=== PATIENT | female | born 1985 | race Caucasian/White ===

== ENCOUNTER 2018-01-15 09:35 | Inpatient (IN) ==
[2018-01-15] MEDS ORDERED: Sod Chloride 0.9% Inj 1,000 ML IV.CONT PRN (10:35)
[2018-01-15] MEDS ORDERED: fentaNYL Citrate Inj 100 MCG/2 ML Ampul IV.PUSH PRN ×2 (10:35)
[2018-01-15] MEDS ORDERED: Oxytocin 30 Units/500ml Premix 30 UNITS/500 ML BAG IV.SIG ONE (10:35)
[2018-01-15] MEDS ORDERED: Naloxone Inj 0.4 MG/ML Vial IV.PUSH PRN ×2 (10:35→15:42)
[2018-01-15] MEDS ORDERED: Sodium Chlor 0.9% Inj 500 ML IV.SIG PRN (10:35)
[2018-01-15] MEDS ORDERED: Oxytocin 30 Units/500ml Premix 30 UNITS/500 ML BAG IV.SIG PRN (10:40)
--- NOTE | 2018-01-15 10:43 | ED ---
History of Present Illness Service: BRENDA Primary Care Physician: No Primary Care Physician Chief Complaint: "My water broke" History of Present Illness: Ms. Alicea is a 32yo at 37/1 who presented to the ED because she had a gush of fluid at 8:24 this am. She is not feeling any contractions, has not had any vaginal bleeding. movement has been good. She denies any issues during . She is GBS (-). Weeks Gestation:: 37 Para: 1 : 2 - Inpatient Certification I certify that the inpatient services were ordered in accordance with Medicare regulations governing the order. This includes certification that hospital inpatient services are reasonable and necessary and in the case of services not specified as inpatient-only under 42 CFR 419.22(n), that they are appropriately provided as inpatient services in accordance to with the 2-midnight benchmark under 43 CFR 412.3(e) PMFSH - Medical / Surgical Hx Neg / Unobtainable Medical Problems Denied: Yes Surgical History: No Previous Surgery - Tobacco History Tobacco Use In Past 30 Days: No - Alcohol History How Often Do You Have a Drink Containing Alcohol: Never (Not during ) - Substance Use History Substance History: No History of Abuse - Travel History Recent Travel in the [place] Within the Last 8 Weeks: No Recent Travel Out of the Country Within the Last 8 Weeks: No Medications and Allergies Allergies Allergy/AdvReac Type Severity Reaction Status Date / Time No Known Allergies Allergy Uncoded 09/12/12 17:17 Active Medications: Active Medications Lactated Ringer's (Lr 1000 Ml Inj) 1,000 mls @ 125 mls/hr IV.CONT .Q8H ANTOINETTE Sodium Chloride (Ns Flush) 2 ml IV.FLUSH PRN PRN PRN Reason: FLUSH AFTER USING IV ACCESS Sodium Chloride (Ns Flush) 2 ml IV.FLUSH BID ANTOINETTE Exam Vital signs: Vital Signs 01/15/18 09:57 01/15/18 10:05 01/15/18 10:10 Temperature 99.3 F Pulse Rate 94 H 107 H 91 H Respiratory Rate 18 Blood Pressure 133/93 H 142/98 H 133/84 Intake & Output 01/14/18 01/15/18 01/15/18 18:59 06:59 18:59 Weight 85 kg - Constitutional no acute distress - Routine Respiratory Exam Present: CTA bilaterally. Absent: accessory muscle use, wheezes, crackles - Routine Cardiovascular Exam Present: RRR, S1, S2 - Routine Abdominal Exam Present: normoactive bowel sounds Comments: Gravid - Routine Exam Comments: Cervical exam by Dr. Bhatia: Dilation 2 Effacement 30 Station -3 - Routine Extremities Exam Present: pulses intact. Absent: edema, calf tenderness - Additional findings Additional findings: FHT: Baseline 140 Reactive Moderate variability No decelerations Results - Labs CBC & Chem 7: 01/15/18 09:45 01/15/18 09:45 Assessment and Plan - Plan 32 yo at 37/0 with SROM -Admit to labor and delivery with expectant management - Attending Attestation The exam, history, and the medical decision-making described in the above note were completed with the assistance of the resident physician. I reviewed and agree with the findings presented. I attest that I had a [id number] encounter with the patient on the same day, and personally performed and documented my assessment and findings in the medical record. Discharge Plan - Physicians Team Primary Care Provider: Primary Care Sonal Carlin Attending Provider: Matt Bhatia
[2018-01-15] MEDS ORDERED: Citric Acid/Sodium Citrate Liq 30 ML UDC PO SCH (10:45)
--- NOTE | 2018-01-15 10:49 | P.HPOB ---
Chief Complaint: "My water broke" History of Present Illness: Ms. lAicea is a 32yo at 37/1 who presented to the ED because she had a gush of fluid at 8:24 this am. She is not feeling any contractions, has not had any vaginal bleeding. movement has been good. She denies any issues during . She is GBS (-). Weeks Gestation:: 37 Para: 1 : 2 - Inpatient Certification I certify that the inpatient services were ordered in accordance with Medicare regulations governing the order. This includes certification that hospital inpatient services are reasonable and necessary and in the case of services not specified as inpatient-only under 42 CFR 419.22(n), that they are appropriately provided as inpatient services in accordance to with the 2-midnight benchmark under 43 CFR 412.3(e) PMFSH - Medical / Surgical Hx Neg / Unobtainable Medical Problems Denied: Yes Surgical History: No Previous Surgery - Tobacco History Tobacco Use In Past 30 Days: No - Alcohol History How Often Do You Have a Drink Containing Alcohol: Never (Not during ) - Substance Use History Substance History: No History of Abuse - Travel History Recent Travel in the [place] Within the Last 8 Weeks: No Recent Travel Out of the Country Within the Last 8 Weeks: No Medications and Allergies Active Medications: Active Medications Lactated Ringer's (Lr 1000 Ml Inj) 1,000 mls @ 125 mls/hr IV.CONT .Q8H ANTOINETTE Sodium Chloride (Ns Flush) 2 ml IV.FLUSH PRN PRN PRN Reason: FLUSH AFTER USING IV ACCESS Sodium Chloride (Ns Flush) 2 ml IV.FLUSH BID ANTOINETTE Allergies Allergy/AdvReac Type Severity Reaction Status Date / Time No Known Allergies Allergy Uncoded 09/12/12 17:17 Exam Vital signs: Vital Signs 01/15/18 09:57 01/15/18 10:05 01/15/18 10:10 Temperature 99.3 F Pulse Rate 94 H 107 H 91 H Respiratory Rate 18 Blood Pressure 133/93 H 142/98 H 133/84 Intake & Output 01/14/18 01/15/18 01/15/18 18:59 06:59 18:59 Weight 85 kg - Constitutional no acute distress - Routine Respiratory Exam Present: CTA bilaterally. Absent: accessory muscle use, wheezes, crackles - Routine Cardiovascular Exam Present: RRR, S1, S2 - Routine Abdominal Exam Present: normoactive bowel sounds Comments: Gravid - Routine Exam Comments: Cervical exam by Dr. Bhatia: Dilation 2 Effacement 30 Station -3 - Routine Extremities Exam Present: pulses intact. Absent: edema, calf tenderness - Additional findings Additional findings: FHT: Baseline 140 Reactive Moderate variability No decelerations Assessment and Plan - Plan 32 yo at 37/0 with SROM -Admit to labor and delivery with expectant management -Start pitocin 06/28/29 -CBC, CMP, U/A -BP slightly elevated on admission (142/98)- continue to monitor -Continuous monitoring -NPO diet DW Dr Bhatia and SDW Dr Song Attestation Attestation: Pt seen and examined by me.
[2018-01-15 10:58] LABS: Baso % (Auto) 0.6 % (0.0-2.0); Eos # (Auto) 0.1 th/mm3 (0.0-0.4); Eos % (Auto) 1.9 % (0.0-4.0); Hematocrit 38.1 % (35.0-46.0); Hemoglobin 12.8 gm/dL (11.6-15.3); Lymph # (Auto) 2.1 th/mm3 (1.0-4.8); Lymph % (Auto) 33.4 % (9.0-44.0); Mean Corpuscular HGB Conc 33.5 % (32.0-36.0); Mean Corpuscular Hemoglobin 31.3 pg (27.0-34.0); Mean Corpuscular Volume 93.6 fL (80.0-100.0); Mean Platelet Volume 9.4 fL (7.0-11.0); Mono # (Auto) 0.4 th/mm3 (0.0-0.9); Mono % (Auto) 6.6 % (0.0-8.0); Neut # (Auto) 3.6 th/mm3 (1.8-7.7); Neut % (Auto) 57.5 % (16.0-70.0); Platelet Count 284 th/mm3 (150-450); Red Blood Count 4.07 mil/mm3 (4.00-5.30); Red Cell Distribution Width 13.5 % (11.6-17.2); White Blood Count 6.2 th/mm3 (4.0-11.0)
[2018-01-15 11:04] LABS: Amphetamine Urine With Conf Neg (Neg); Benzodiazepine Urine With Conf Neg (Neg)
[2018-01-15 11:15] LABS: Alanine Aminotransferase 26 U/L (10-53); Albumin 2.7 g/dL (3.4-5.0); Anion Gap 8 meq/L (5-15); Aspartate Aminotransferase 26 U/L (15-37); Blood Urea Nitrogen 11 mg/dL (7-18); Calcium 8.1 mg/dL (8.5-10.1); Carbon Dioxide 19.9 meq/L (21.0-32.0); Chloride 113 meq/L (98-107); Glomerular Filtration Rate Greater Than 89 mL/min (>89); Glucose,Random 73 mg/dL (74-106); Potassium 3.9 meq/L (3.5-5.1); Sodium 141 meq/L (136-145)
[2018-01-15 11:17] LABS: Alkaline Phosphatase 188 U/L (45-117); Total Protein 6.8 g/dL (6.4-8.2)
[2018-01-15] MEDS ORDERED: Bisacodyl 10 MG Supp RECTAL PRN (15:42)
[2018-01-15] MEDS ORDERED: Benzocaine 20% Top Spray 60 ML Can TOPICAL PRN (15:42)
[2018-01-15] MEDS ORDERED: Witch Hazel 50%/Glyderin 12.5% 40 Pad Jar RECTAL PRN (15:42)
[2018-01-15] MEDS ORDERED: Oxytocin 30 Units/500ml Premix 30 UNITS/500 ML BAG IV.CONT SCH (15:45)
[2018-01-15] MEDS ORDERED: Measles/Mumps/Rubella Vaccine Inj 0.5 ML Vial SQ ONE (16:00)
[2018-01-15] MEDS ORDERED: Diphtheria/Tetanus/Pertussis Vaccine Inj 0.5 ML Syringe IM ONE (16:00)
--- NOTE | 2018-01-15 17:26 | P.OBDELI ---
Weeks Gestation: 37 Patient Started Active Labor: Yes Active Labor Start Date: 01/15/18 Active Labor Start Time: 07:00 Medical Induction of Labor: No Artificial Rupture of Membrane: Yes Artificial ROM Date: 01/15/18 Anesthesia: None Episiotomy: none Vaginal Delivery: Normal Presentation: Occiput anterior Nuchal Cord: None Delayed Cord Clamping (45 sec): Yes Placenta: Spontaneous delivery, Intact, 3 vessel cord Laceration: None Estimated blood loss (mL): 150 : Male
[2018-01-15] MEDS: Senna/Docusate Sodium 8.6/50 MG Tablet PO SCH (19:59)
[2018-01-15] MEDS: Ibuprofen 400 MG Tablet PO PRN (19:59)
[2018-01-15] MEDS: Acetaminophen 325 MG Tablet PO PRN (19:59)
[2018-01-15] MEDS ORDERED: Zolpidem Tartrate 5 MG Tablet PO PRN (21:00)
[2018-01-16] MEDS: Ibuprofen 400 MG Tablet PO PRN ×2 (04:48→19:11)
[2018-01-16] MEDS: Acetaminophen 325 MG Tablet PO PRN (04:48)
--- NOTE | 2018-01-16 07:17 | P.PNOB ---
Subjective Interval history: Patient is a 32-year-old delivered at 37 weeks and 0 days. Patient is day 1 after . Patient's pain is well-controlled. Patient reports eating and drinking without any nausea or vomiting. Patient reports minimal bleeding. Patient has passed gas but no bowel movements. Patient is walking without lower extremity pain or shortness of breath. Patient is unsure about contraception. Objective Vital Signs/I&O: Vital Signs 01/15/18 09:57 01/15/18 10:05 01/15/18 10:10 Temperature 99.3 F Pulse Rate 94 H 107 H 91 H Respiratory Rate 18 Blood Pressure 133/93 H 142/98 H 133/84 01/15/18 11:57 01/15/18 11:58 01/15/18 12:00 Temperature 99.0 F Pulse Rate 71 Respiratory Rate 18 Blood Pressure 139/90 01/15/18 12:27 01/15/18 12:29 01/15/18 13:30 Temperature Pulse Rate 88 Respiratory Rate 18 18 Blood Pressure 144/94 H 01/15/18 14:00 01/15/18 14:02 01/15/18 14:40 Temperature 98.5 F Pulse Rate 79 77 74 Respiratory Rate Blood Pressure 138/86 139/90 01/15/18 15:43 01/15/18 15:51 01/15/18 15:52 Temperature Pulse Rate 86 85 Respiratory Rate 18 Blood Pressure 125/74 136/63 01/15/18 16:15 01/15/18 16:18 01/15/18 16:37 Temperature Pulse Rate 84 67 Respiratory Rate 18 18 Blood Pressure 136/80 156/90 H 01/15/18 17:00 01/15/18 17:15 01/15/18 18:20 Temperature 98.3 F Pulse Rate 60 60 50 L Respiratory Rate 16 Blood Pressure 152/87 H 163/88 H 152/82 H 01/15/18 20:00 Temperature 98.6 F Pulse Rate 60 Respiratory Rate 18 Blood Pressure 143/79 H Intake & Output 01/15/1818 01/16/18 18:59 06:59 18:59 Weight 85 kg Result Diagrams: 01/15/18 09:45 01/15/18 09:45 Objective Remarks: GENERAL: Well-nourished, well-developed patient. CARDIOVASCULAR: Regular rate and rhythm without murmurs, gallops, or rubs. RESPIRATORY: Breath sounds equal bilaterally. No accessory muscle use. ABDOMEN/GI: Abdomen soft, non-tender. Fundus: Firm, non-tender at umbilicus. GENITOURINARY: Light to moderate bleeding. EXTREMITIES: No cyanosis or edema, non-tender, without signs of DVT. Medications and IVs: Active Medications Acetaminophen (Tylenol) 650 mg PO Q4H PRN PRN Reason: PAIN SCALE 1 TO 2 Last Admin: 01/16/18 04:48 Dose: 650 mg Al Hydroxide/Mg Hydroxide (Milk Of Magnesia Liq) 30 ml PO Q12H PRN PRN Reason: Mild Constipation Benzocaine (Americaine 20% Top [place]) 1 spray TOPICAL Q4H PRN PRN Reason: For Perineum Discomfort Bisacodyl (Dulcolax Supp) 10 mg RECTAL DAILY PRN PRN Reason: SEVERE CONSITIPATION Oxytocin (Pitocin 30 Units/Ns 500 Ml Premix) 30 units in 500 mls @ 1 mls/hr IV.SIG TITRATE PRN; Protocol PRN Reason: For induction of labor Last Admin: 01/15/18 11:52 Dose: 1 milliunit/min, 1 mls/hr Lactulose (Lactulose Liq) 30 ml PO DAILY PRN PRN Reason: SEVERE CONSITIPATION Naloxone HCl (Narcan Inj) 0.1 mg IV.PUSH Q2M PRN PRN Reason: for opiate reversal Ondansetron HCl (Zofran Odt) 4 mg PO Q6H PRN PRN Reason: NAUSEA OR VOMITING Senna/Docusate Sodium (Meghan-Colace) 1 tab PO BID ANTOINETTE Last Admin: 01/15/18 19:59 Dose: 1 tab Sennosides (Senokot) 17.2 mg PO Q12H PRN PRN Reason: Moderate Constipation Sodium Chloride (Ns Flush) 2 ml IV.FLUSH BID ANTOINETTE Sodium Chloride (Ns Flush) 2 ml IV.FLUSH PRN PRN PRN Reason: FLUSH AFTER USING IV ACCESS Last Admin: 01/15/18 16:47 Dose: 2 ml Witch Lola/Glycerin (Tucks Pads) 1 applicatio RECTAL QID PRN PRN Reason: HEMORRHOIDS Zolpidem Tartrate (Ambien) 5 mg PO HS PRN PRN Reason: SLEEP Assessment and Plan - Plan Patient is a 32-year-old delivered at 37 weeks and 1 days. Patient is day 1 after . Patient was counseled to do 6 weeks of pelvic rest. Patient was counseled to follow up in 6 weeks. Patient was noted to have elevated blood pressures overnight as high as 163/88 at 1715 on 01/15. Preeclampsia labs prior to delivery were normal. --Starting labetalol 200 mg p.o. twice daily for elevated blood pressures --Continue routine care --Motrin and Tylenol when necessary for pain --Encourage OOB --Pelvic rest for 6 weeks will need follow-up appointment at that time. --Contraception: Unsure at this time --Anticipate discharge tomorrow
[2018-01-16] MEDS: Labetalol 200 MG Tablet PO SCH ×2 (09:07→22:59)
[2018-01-16] MEDS: Senna/Docusate Sodium 8.6/50 MG Tablet PO SCH (09:59)
[2018-01-17] MEDS: Ibuprofen 400 MG Tablet PO PRN (07:23)
--- NOTE | 2018-01-17 08:58 | P.PNOB ---
Subjective Interval history: Patient is a 32-year-old delivered at 37 weeks and 0 days. Patient is day 2 after . Patient's pain is well-controlled. Patient reports eating and drinking without any nausea or vomiting. Patient reports minimal bleeding. Patient has passed gas and bowel movements.. Patient is walking without lower extremity pain or shortness of breath. Patient does not desire contraception and plans on breast-feeding. Objective Vital Signs/I&O: Vital Signs 01/16/18 09:00 01/16/18 22:54 Pulse Rate 62 52 L Blood Pressure 125/78 139/81 Result Diagrams: 01/15/18 09:45 01/15/18 09:45 Objective Remarks: GENERAL: Well-nourished, well-developed patient. CARDIOVASCULAR: Regular rate and rhythm without murmurs, gallops, or rubs. RESPIRATORY: Breath sounds equal bilaterally. No accessory muscle use. ABDOMEN/GI: Abdomen soft, non-tender. Fundus: Firm, non-tender at umbilicus. GENITOURINARY: Light to moderate bleeding. EXTREMITIES: No cyanosis or edema, non-tender, without signs of DVT. Medications and IVs: Active Medications Acetaminophen (Tylenol) 650 mg PO Q4H PRN PRN Reason: PAIN SCALE 1 TO 2 Last Admin: 01/16/18 04:48 Dose: 650 mg Al Hydroxide/Mg Hydroxide (Milk Of Magnesia Liq) 30 ml PO Q12H PRN PRN Reason: Mild Constipation Benzocaine (Americaine 20% Top [place]) 1 spray TOPICAL Q4H PRN PRN Reason: For Perineum Discomfort Bisacodyl (Dulcolax Supp) 10 mg RECTAL DAILY PRN PRN Reason: SEVERE CONSITIPATION Oxytocin (Pitocin 30 Units/Ns 500 Ml Premix) 30 units in 500 mls @ 1 mls/hr IV.SIG TITRATE PRN; Protocol PRN Reason: For induction of labor Last Admin: 01/15/18 11:52 Dose: 1 milliunit/min, 1 mls/hr Labetalol HCl (Trandate) 200 mg PO BID ANTOINETTE Last Admin: 01/16/18 22:59 Dose: Not Given Lactulose (Lactulose Liq) 30 ml PO DAILY PRN PRN Reason: SEVERE CONSITIPATION Naloxone HCl (Narcan Inj) 0.1 mg IV.PUSH Q2M PRN PRN Reason: for opiate reversal Ondansetron HCl (Zofran Odt) 4 mg PO Q6H PRN PRN Reason: NAUSEA OR VOMITING Senna/Docusate Sodium (Meghan-Colace) 1 tab PO BID [facility] Last Admin: 01/16/18 09:59 Dose: 1 tab Sennosides (Senokot) 17.2 mg PO Q12H PRN PRN Reason: Moderate Constipation Sodium Chloride (Ns Flush) 2 ml IV.FLUSH BID [facility] Last Admin: 01/16/18 10:00 Dose: 2 ml Sodium Chloride (Ns Flush) 2 ml IV.FLUSH PRN PRN PRN Reason: FLUSH AFTER USING IV ACCESS Last Admin: 01/15/18 16:47 Dose: 2 ml Witch Lola/Glycerin (Tucks Pads) 1 applicatio RECTAL QID PRN PRN Reason: HEMORRHOIDS Zolpidem Tartrate (Ambien) 5 mg PO HS PRN PRN Reason: SLEEP Assessment and Plan - Plan Patient is a 32-year-old delivered at 37 weeks and 1 days. Patient is day 1 after . Patient was counseled to do 6 weeks of pelvic rest. Patient was counseled to follow up in 6 weeks. Patient was noted to have elevated blood pressures overnight as high as 163/88 at 1715 on 01/15. Preeclampsia labs prior to delivery were normal. --Starting labetalol 200 mg p.o. twice daily for elevated blood pressures --Continue routine care --Motrin and Tylenol when necessary for pain --Encourage OOB --Pelvic rest for 6 weeks will need follow-up appointment at that time. --Contraception: Unsure at this time --Anticipate discharge tomorrow Discharge Planning: Patient is a 32-year-old delivered at 37 weeks and 0 days. Patient is day 2 after . Patient was counseled to do 6 weeks of pelvic rest. Patient was counseled to follow up in 6 weeks. Patient was normotensive and labetalol was held due to a heart rate in the 50s 60s. No need to treat as she is been normotensive for 24 hours. --AF VSS --Continue routine care --Motrin and Tylenol when necessary for pain --Encourage OOB --Pelvic rest for 6 weeks will need follow-up appointment at that time. --Contraception: None --Anticipate discharge today
[2018-01-17 09:02] VITALS: RESP 18
[2018-01-17] MEDS: Labetalol 200 MG Tablet PO SCH (10:19)
[2018-01-17] MEDS: Senna/Docusate Sodium 8.6/50 MG Tablet PO SCH (10:19)
[2018-01-17 11:01] VITALS: BP 136/73; PULSE 65; TEMP 97.6
== END 2018-01-17 14:09 | disposition home or self-care (01) ==
LOC: HOBED 09:35 → H2E 10:17 → H1EA 10:25
PROVIDERS: ADMIT Obstetrics & Gynecology; ATTEND Obstetrics & Gynecology
DX: Z3A.37 37 weeks gestation of pregnancy; O80 Encounter for full-term uncomplicated delivery; R03.0 Elevated blood-pressure reading, without diagnosis of hypertension; Z37.0 Single live birth